=== PATIENT | female | born 1945 | race Caucasian/White ===

== ENCOUNTER 2016-07-26 10:44 | Outpatient (CLI) | payer MEDICARE, OTHER ==
[2016-07-26 11:10] LABS: BASOPHILS % 0.5 (0.0-1.5); EOSINOPHILS % 0.9 % (0.0-6.8); MEAN CORPUSCULAR HEMOGLOBIN 28.6 pg (28.0-34.0); MEAN CORPUSCULAR VOLUME 87.8 fl (80.0-100.0); MONOCYTES % 5.7 % (0.0-11.0); NEUTROPHILS # 2.8 # k/uL (1.4-7.7)
[2016-07-26 11:50] LABS: eGFR (African) > 60; eGFR (Non-African) > 60
== END 2016-07-26 10:45 ==
LOC: LAB 10:44
PROVIDERS: ATTEND Family Medicine
DX: E78.00 Pure hypercholesterolemia, unspecified (principal); Z51.81 Encounter for therapeutic drug level monitoring; I10 Essential (primary) hypertension
CPT/HCPCS: 36415; 80053; 80061; 85025

== ENCOUNTER 2016-10-24 09:53 | Day surgery (SDC) | payer MEDICARE, OTHER ==
[~2016-10-24 09:53] MED LIST: LACTATED RINGERS 1,000 ML IV.SOLN IV ONE; LIDOCAINE HCL/PF 2% 100 MG/5 ML VIAL IJ ONE; PROPOFOL 200 MG/20 ML VIAL IV ONE; SALINE FLUSH 10 ML DISP.SYRIN IVF ONE
--- NOTE | 2016-10-25 10:13 | GI Report ---
REFERRING PHYSICIAN: Dr. Michael Willoughby WOOL HAT FLANGER: Aníbal Colon MD PROCEDURE MEDICATION: Propofol as per anesthesia. INDICATIONS: A 71-year-old who is here for her 10-year follow up screening. She denies change in stool or blood in the stool. PROCEDURE PERFORMED: Colonoscopy. PROCEDURE: An Olympus video colonoscope was advanced all the way to the cecum. The appendiceal orifice and terminal ileum were normal. On slow withdrawal, the cecum, ascending colon, and transverse colon with no obvious intraluminal lesions noted. The descending colon and sigmoid colon, again, no obvious intraluminal lesions were noted. Retroflexion of the rectum was normal. Patient tolerated the procedure well. FINDINGS: Normal mucosa to the cecum. RECOMMENDATIONS: 1. Continue high-fiber diet. 2. Consider re-looking at her colon in 10 years, sooner if clinically indicated. cc: Dr. Michael RAMIREZ
== END 2016-10-24 09:54 ==
LOC: OPSURG 09:53
PROVIDERS: ATTEND Internal Medicine Gastroenterology
DX: Z12.11 Encounter for screening for malignant neoplasm of colon (principal)
CPT/HCPCS: G0121; J2001; J2704; J7120; S1016

== ENCOUNTER 2017-02-28 13:33 | Outpatient (CLI) | payer MEDICARE, OTHER ==
--- NOTE | 2017-02-28 15:06 | Diagnostic Imaging Report ---
GWEN KOENIG [facility] [id number] [facility] [address] [id number] Report Submission Date: Feb 28, 2017 2:10:46 PM CONTRACT ANALYST Patient Study Name: SAMRA OTOOLE Date: Feb 28, 2017 1:44:53 PM CONTRACT ANALYST Modality Type: US Gender: F Description: UNILAT LTD STDY EXT VEINS : 45 Institution: [facility] Physician: GWEN KOENIG Examination: Ultrasound vein History: Calf discomfort Findings: Sonographic evaluation of the left lower extremity venous system from the groin to the popliteal fossa inclusive. Normal compressibility. No luminal filling defect. Normal waveforms and response to augmentation. No popliteal region fluid collection. Impression: No evidence for deep venous thrombosis. Electronically signed on Feb 28, 2017 2:10:46 PM CONTRACT ANALYST by: Mitch RAMIREZ
== END 2017-02-28 13:34 ==
LOC: RAD 13:33
PROVIDERS: ATTEND Physician Assistant
DX: M79.662 Pain in left lower leg (principal); Z86.718 Personal history of other venous thrombosis and embolism
CPT/HCPCS: 93971

== ENCOUNTER 2019-02-09 15:11 | Emergency (ER) | payer MEDICARE, OTHER ==
--- NOTE | 2019-02-09 15:39 | ED Physician Documentation ---
Skin Rash - HISTORIAN Historian: patient - HPI Chief Complaint: Skin Rash Additional Information: 73 year old female presents with a cellulitis to the left elbow; she has had it for almost 2 weeks; she has taken a round of antibiotics (Bactrim BID x 10 day s)- took her last pill last night but arm still red/erythemic- went back to urgent care in [place] today and they started her on Doxyclycline; she took it at noon and arrives to ER with "scattered" rash to the stomach, back and arms. Denies any resp. compromise. Denies that it really itches. Onset: hours Timing: still present Duration: persistent since Location: generalized Quality: none Identified Cause?: Yes (Doxycycline) When Did Symptoms Start: 02/09/19 Where: home Context: Medication Exposure: antibiotic Context: Food Exposure: none - ROS CONST: none CVS/RESP: none EYES/ENT: none GI/: none MS/SKIN/LYMPH: none NEURO/PSYCH: none - PAST HX Past History: hypertension Other History: none Immunizations: UTD Allergies/Adverse Reactions: Allergies Allergy/AdvReac Type Severity Reaction Status Date / Time doxycycline Allergy Intermediate Rash Verified 02/09/19 16:16 Home Medications: Ambulatory Orders Medication Instructions Recorded Multivit-Min/Iron/Folic/Lutein 1 each PO DAILY u2 12/02/16 [Centrum Silver Women Tablet] Clindamycin HCl 300 mg PO QID #40 capsule 02/09/19 - SOCIAL HX Smoking History: non-smoker Alcohol Use: none Drug Use: none - FAMILY HX Family History: none - VITAL SIGNS Vital Signs: Vital Signs Temp Pulse Resp BP Pulse Ox 98.8 F 95 H 14 109/64 98 02/09/19 16:26 02/09/19 16:26 02/09/19 16:26 02/09/19 16:26 02/09/19 16:26 - REVIEWED ASSESSMENTS Nursing Assessment Reviewed: Yes Vitals Reviewed: Yes ED Results Lab/Radiology - Lab Results Lab Results: Lab Results 02/09/19 02/09/19 15:30 15:30 WBC 2.50 K/ul L K/ul (4.00-12.00) RBC 4.34 M/ul M/ul (3.90-5.20) Hgb 12.6 g/dL g/dL (11.5-16.0) Hct 37.1 % % (34.5-46.5) MCV 85.0 fl fl (80.0-100.0) MCH 29.1 pg pg (28.0-34.0) MCHC 34.1 g/dL g/dL (30.0-36.0) RDW 11.4 % % (11.3-14.3) Plt Count 218 K/mm3 K/mm3 (130-400) Neut % (Auto) 70.1 % % (39.0-79.0) Lymph % (Auto) 17.7 % % (16.0-50.0) Crockett % (Auto) 8.7 % % (0.0-11.0) Eos % (Auto) 2.9 % % (0.0-6.8) Baso % (Auto) 0.6 % % (0.0-1.5) Neut # (Auto) 1.7 # k/uL # k/uL (1.4-7.7) Lymph # (Auto) 0.4 # k/uL L # k/uL (0.6-4.0) Crockett # (Auto) 0.2 # k/uL # k/uL (0.0-0.9) Eos # (Auto) 0.1 # k/uL # k/uL (0.0-0.6) Baso # (Auto) 0.0 # k/uL # k/uL (0.0-0.5) Sodium 136 mmol/L L mmol/L (137-145) Potassium 4.6 mmol/L mmol/L (3.5-5.1) Chloride 102 mmol/L mmol/L (98-107) Carbon Dioxide 22 mmol/L mmol/L (22-30) Anion Gap 16.6 BUN 15 mg/dL mg/dL (7-17) Creatinine 1.02 mg/dL mg/dL (0.52-1.04) Estimated Creat Clear 58 Est GFR ( Amer) > 60 (60 - ) Est GFR (Non-Af Amer) > 60 (60 - ) Glucose 112 mg/dL H mg/dL (74-106) Calcium 9.7 mg/dL mg/dL (8.4-10.2) Total Bilirubin 0.3 mg/dL mg/dL (0.2-1.3) AST 45 U/L U/L (15-46) ALT 24 U/L U/L (0-35) Alkaline Phosphatase 90 U/L U/L (38-126) Total Protein 7.5 g/dL g/dL (6.3-8.2) Albumin 4.4 g/dL g/dL (3.5-5.0) - Orders Orders: ED Orders Category Date Time Status BLOOD CULTURE Stat Lab 02/09/19 15:30 Received CBC/PLATELET/DIFF Routine Lab 02/09/19 15:30 Completed CMP Routine Lab 02/09/19 15:30 Completed Skin Rash Physical Exam - EXAM General Appearance: no acute distress, alert Skin: warm,dry, skin rash (reaction from the doxycycline), other (warmth, redness to the left elbow) Location: other (left elbow) Character: erythematous Symptoms: warmth, tenderness, swelling Extremities: non-tender, nml ROM EENT: lips nml, gums nml, pharynx nml Neck: trachea midline Respiratory: breath sounds normal CVS: heart sounds nml Abdomen: non-tender, nml bowel sounds Neuro/Psych: oriented x3, CN's nml as tested, motor nml, sensation nml, mood/affect nml Discharge Clincal Impression: Cellulitis of left elbow, Allergic reaction caused by a drug Prescriptions: Clindamycin HCl 300 mg PO QID #40 capsule Referrals: Michael Willoughby MD [Primary Care Provider] - 2 Days Additional Instructions: Take Clindamycin 300mg by mouth 4 times a day for 10 days Increase water intake Benadryl 25mg by mouth every 6 hours as needed for rash/itching Call [facility] Monday and schedule appt. with PCP. Condition: Good Disposition: HOME, SELF-CARE Decision to Admit: NO Decision Time: 16:30
[2019-02-09 15:45] VITALS: BP 109/64
[2019-02-09 16:01] LABS: BASOPHILS % 0.6 % (0.0-1.5); NEUTROPHILS # 1.7 # k/uL (1.4-7.7)
[2019-02-09 16:07] LABS: eGFR (Non-African) > 60
== END 2019-02-09 16:26 | disposition home or self-care (01) ==
LOC: ED 15:11
DX: L03.114 Cellulitis of left upper limb (principal); T50.901A Poisoning by unspecified drugs, medicaments and biological substances, accidental (unintentional), initial encounter; Z88.8 Allergy status to other drugs, medicaments and biological substances
CPT/HCPCS: 36415; 80053; 85025; 87040; 99283; 99284

== ENCOUNTER 2019-02-13 14:00 | Outpatient (CLI) | payer MEDICARE, OTHER ==
[2019-02-14 11:01] LABS: BASOPHILS % 0.5 % (0.0-1.5); NEUTROPHILS # 1.9 # k/uL (1.4-7.7)
== END 2019-02-13 14:10 ==
LOC: LABRHC 14:00
PROVIDERS: ATTEND Family Medicine
DX: D70.9 Neutropenia, unspecified (principal)
CPT/HCPCS: 85025